=== PATIENT | female | born 1990 | race Caucasian/White ===

== ENCOUNTER 2019-10-08 02:50 | Inpatient (IN) | payer MEDICAID ==
[~2019-10-08] VITALS: Ht 165.1 cm; Wt 81.6 kg
[2019-10-08] MEDS ORDERED: LACTATED RINGERS 1,000 ML IV SCH (04:04)
[2019-10-08] MEDS ORDERED: LIDOCAINE HCL 1% 20ML VIAL (Pyxis) INJ INFIL SCH (04:15)
[2019-10-08] MEDS ORDERED: BUTORPHANOL TARTRATE 2 MG/ML VIAL IV PRN (04:15)
[2019-10-08 04:22] LABS: HEMATOCRIT. 38.2 % (36.0-48.0); MEAN CORPUSCULAR HEMOGLOBIN 29.3 pg (28.0-32.0); MEAN CORPUSCULAR VOLUME 85.6 fL (81.0-99.0); MEAN PLATELET VOLUME 8.9 fl (7.4-10.4); PLATELET 263 x1000/uL (130-400); RED BLOOD CELL COUNT 4.46 mill/uL (4.2-5.4); RED CELL DISTRIBUTION WIDTH 13.7 % (11.6-14.6)
[2019-10-08 04:31] LABS: INR 0.9; PARTIAL THROMBOPLASTIN TIME 25.2 sec (23.4-31.0)
[2019-10-08] MEDS ORDERED: PENICILLIN G POTASSIUM 5 MMU in DEXT 5% WATER 100 ML IV SCH (05:00)
[2019-10-08 05:03] LABS: HEPATITIS B SURFACE ANTIGEN NEGATIVE
[2019-10-08] MEDS ORDERED: ROPIVACAINE HCL/PF 0.2% (2MG/ML) EPID 200ML EPI ONE (06:00)
[2019-10-08] MEDS: DEXT 5%/LR + PITOCIN 20UNITS/L 1,000 ML IV SCH ×2 (08:01→08:03)
[2019-10-08 08:46] LABS: PLATELET ESTIMATE NORMAL
[2019-10-08] MEDS: PRENATAL VIT/FE FUMARATE/FA TABLET PO SCH (09:00)
[2019-10-08] MEDS ORDERED: HEMORRHOIDAL SUPP PR PRN (09:00)
[2019-10-08] MEDS ORDERED: ACETAMINOPHEN WITH CODEINE 300/30MG TABLET PO PRN ×2 (09:00)
[2019-10-08] MEDS: SIMETHICONE 80MG TABLET CHEW PO SCH ×3 (09:00→21:00)
[2019-10-08] MEDS ORDERED: BISACODYL 10MG SUPP PR PRN (09:00)
[2019-10-08] MEDS ORDERED: IBUPROFEN 400MG TABLET PO PRN (09:00)
[2019-10-08] MEDS: MAGNESIUM/ALUMINUM HYDROXIDE/SIMETHICONE 30ML UDC PO SCH ×3 (09:00→21:00)
[2019-10-08] MEDS ORDERED: PENICILLIN G POTASSIUM 2.5 MMU in DEXTROSE 5% WATER 50 ML IV SCH (09:00)
[2019-10-08 09:30] VITALS: BP 97/54
[2019-10-08] MEDS ORDERED: DEXT 5%/LR + PITOCIN 20UNITS/L 1,000 ML IV SCH (09:30)
[2019-10-08 10:30] VITALS: BP 106/64
[2019-10-08 14:00] VITALS: BP 111/60
[2019-10-08 19:30] VITALS: BP 102/56
[2019-10-08] MEDS ORDERED: DOCUSATE SODIUM 100MG CAPSULE PO SCH (21:00)
[2019-10-09 04:00] VITALS: BP 97/55
[2019-10-09 06:13] LABS: BASOPHILS % 0.4 % (0.0-2.0); EOSINOPHILS % 0.3 % (0.0-5.0); HEMATOCRIT. 38.3 % (36.0-48.0); HEMOGLOBIN. 12.9 g/dL (12.0-16.0); LYMPHOCYTES % 13.7 % (20.0-50.0); MEAN CORPUSCULAR HEMOGLOBIN 29.2 pg (28.0-32.0); MEAN CORPUSCULAR VOLUME 86.7 fL (81.0-99.0); MEAN PLATELET VOLUME 8.2 fl (7.4-10.4); MONOCYTES % 10.5 % (2.0-8.0); NEUTROPHILS % 75.1 % (40.0-76.0); PLATELET 236 x1000/uL (130-400); RED BLOOD CELL COUNT 4.43 mill/uL (4.2-5.4)
[2019-10-09] MEDS ORDERED: FERROUS SULFATE 325MG TABLET PO SCH (07:30)
[2019-10-09 08:00] VITALS: BP 91/63
[2019-10-09] MEDS: PRENATAL VIT/FE FUMARATE/FA TABLET PO SCH (08:44)
[2019-10-09] MEDS: MAGNESIUM/ALUMINUM HYDROXIDE/SIMETHICONE 30ML UDC PO SCH (08:45)
[2019-10-09] MEDS: SIMETHICONE 80MG TABLET CHEW PO SCH (08:45)
[2019-10-09] MEDS ORDERED: MEASLES,MUMPS&RUBELLA VACCINE 1 VIAL SUBCUT ONE (09:00)
[2019-10-09 09:21] LABS: COLOR URINE YELLOW (YELLOW); KETONES URINE TRACE (NEGATIVE); LEUKOCYTE ESTERASE URINE 1+ (NEGATIVE); NITRITE URINE NEGATIVE (NEGATIVE); OCCULT BLOOD URINE 3+ (NEGATIVE); PROTEIN URINE TRACE (NEGATIVE); SPECIFIC GRAVITY URINE 1.021 (1.005-1.030); UROBILINOGEN URINE 0.2 E.U./dL (0.2-1.0)
[2019-10-09 09:22] LABS: CLARITY URINE SL HAZY (CLEAR)
[2019-10-09 10:01] LABS: METHADONE URINE SCREEN NEGATIVE (NEGATIVE); OPIATES URINE SCREEN NEGATIVE (NEGATIVE); PHENCYCLIDINE URINE SCREEN NEGATIVE (NEGATIVE)
[2019-10-09 10:02] LABS: *AMPHETAMINES SCREEN URINE NEGATIVE (NEGATIVE); *BARBITURATES SCREEN URINE NEGATIVE (NEGATIVE); *BENZODIAZEPINES SCREEN URINE NEGATIVE (NEGATIVE); *COCAINE SCREEN URINE NEGATIVE (NEGATIVE); CANNABINOID URINE SCREEN NEGATIVE (NEGATIVE)
== END 2019-10-09 14:00 | disposition home or self-care (01) | DRG 560 ==
LOC: 8 EST LDRP 02:50 → INTOOBSV 02:50 → OBSVTOIN 02:50 → 8 EST LDRP 07:19 → 8EST 09:32
PROVIDERS: ADMIT Obstetrics & Gynecology; ATTEND Obstetrics & Gynecology
PROC: 10E0XZZ Delivery of Products of Conception, External Approach (ICD-10-PCS; principal; 2019-10-08)
PROC: 3E0R3BZ Introduction of Anesthetic Agent into Spinal Canal, Percutaneous Approach (ICD-10-PCS; 2019-10-08)
PROC: 00HU33Z Insertion of Infusion Device into Spinal Canal, Percutaneous Approach (ICD-10-PCS; 2019-10-08)
DX: O80 Encounter for full-term uncomplicated delivery (principal); Z37.0 Single live birth; Z3A.38 38 weeks gestation of pregnancy
CPT/HCPCS: 36415; 80305; 81003; 85025; 86592; 86703; 86762; 86850; 86900; 87340; 90707; G0378; J2540; J2590; J3010; J3490; J7060